=== PATIENT | male | born 1940 | race Caucasian/White ===

== ENCOUNTER → 2017-11-04 | Outpatient (CLI) | payer OTHER ==
[~2017-11-04] MED LIST: CALCTAB19 PO; DILT90TA PO; KCL10C PO; LISI-357 PO; LISI-519 PO; MAGN500T2 PO; METF850 PO; METF850T PO; PIOG15 PO; PIOG15TA5 PO; RIVA20 PO; ROSU20 PO; ROSU40 PO; SPIR25TA PO; VITA2000 PO; VITA250C3 CHEW; VITA500T35 PO; XARE20TA PO; ZITHTAB PO
== END ==
LOC: HRSP 08:55
PROVIDERS: ATTEND Internal Medicine
DX: J45.909 Unspecified asthma, uncomplicated (principal)
CPT/HCPCS: 94060; 94620; 94726; 94729; 95012

== ENCOUNTER 2017-11-08 14:38 | Emergency (ER) | payer OTHER ==
[~2017-11-08] VITALS: Ht 165.1 cm; Wt 81.0 kg
[~2017-11-08 14:38] MED LIST changes: -CALCTAB19 PO; -LISI-519 PO; -MAGN500T2 PO; -METF850T PO; -PIOG15TA5 PO; -ROSU20 PO; -VITA2000 PO; -VITA250C3 CHEW; -VITA500T35 PO; -XARE20TA PO; -ZITHTAB PO
[2017-11-08 14:48] VITALS: BP 115/55; PULSE 61; RESP 16; TEMP 97.5; O2SAT 98
[2017-11-08 16:14] VITALS: BP 116/61; PULSE 68; RESP 20; O2SAT 95
[2017-11-08] MEDS ORDERED: LISI-519 PO (16:20)
[2017-11-08] MEDS ORDERED: XARE20TA PO (16:20)
[2017-11-08] MEDS ORDERED: SPIR25TA PO (16:20)
[2017-11-08] MEDS ORDERED: CALCTAB19 PO (16:20)
[2017-11-08] MEDS ORDERED: VITA250C3 CHEW (16:20)
[2017-11-08] MEDS ORDERED: ROSU20 PO (16:20)
[2017-11-08] MEDS ORDERED: VITA2000 PO (16:20)
[2017-11-08] MEDS ORDERED: DILT90TA PO (16:20)
[2017-11-08] MEDS ORDERED: VITA500T35 PO (16:20)
[2017-11-08] MEDS ORDERED: PIOG15TA5 PO (16:20)
[2017-11-08] MEDS ORDERED: MAGN500T2 PO (16:20)
[2017-11-08] MEDS ORDERED: METF850T PO (16:20)
[2017-11-08] MEDS ORDERED: SODIUM CHLORIDE 0.9% FLUSH 10 ML FLUSH IVF PRN (16:30)
--- NOTE | 2017-11-08 16:41 | PD ---
HPI Chief Complaint: Dizziness Time Seen by Provider: 16:29 Travel History International Travel<30 days: No Contact w/Intl Traveler<30days: No Traveled to known affect area: No History of Present Illness HPI 76-year-old male patient with history of diabetes, A. fib, TIA, CHF, presents to the ER today because he states that over last few days he has been having dizziness, it is intermittently worse, and has been coughing and feeling generally weak. He coughs of white phlegm. He denies any fevers, vomiting, chest pains, or other symptoms. Modifying Factors: None Associated Signs & Symptoms: Cough, general weakness, dizziness Risk Factors: Elderly, multiple medical issues, CHF PFSH Past Medical History Hx Anticoagulant Therapy: Yes Arthritis: Yes (back) Asthma: No Atrial Fibrillation: Yes Autoimmune Disease: No Heart Rhythm Problems: Yes Cancer: No Cardiovascular Problems: Yes (htn on meds, a-fib) High Cholesterol: Yes Chemotherapy: No Chest Pain: No Congestive Heart Failure: Yes COPD: No Cerebrovascular Accident: Yes (tia) Diabetes: Yes (type 2) Patient Takes Glucophage: Yes Diminished Hearing: Yes Endocrine: Yes Gastrointestinal Disorders: No GERD: No Genitourinary: No Hiatal Hernia: No Hypertension: Yes Immune Disorder: No Implanted Vascular Access Dvce: No Kidney Stones: No Musculoskeletal: Yes Neurologic: Yes Psychiatric: No Reproductive: No Respiratory: No Immunizations Current: No Migraines: No Radiation Therapy: No Renal Failure: No Seizures: No Shingles: Yes Sickle Cell Disease: No Sleep Apnea: No Thyroid Disease: No Ulcer: No Past Surgical History Abdominal Surgery: No AICD: No Arteriovenous Shunt: No Cardiac Surgery: No Ear Surgery: No Endocrine Surgery: No Eye Surgery: No Genitourinary Surgery: No Gynecologic Surgery: No Insulin Pump: No Joint Replacement: Yes (LEFT KNEE PARTIAL REPLACEMENT) Oral Surgery: No Pacemaker: No Thoracic Surgery: No Tonsillectomy: Yes Other Surgery: Yes (RIGHT HAND S/P INFECTION: 2013) Social History Alcohol Use: Yes (OCCASIONAL) Tobacco Use: No Substance Use: No Allergies-Medications (Allergen,Severity, Reaction): Coded Allergies: No Known Allergies (Verified Adverse Reaction, Unknown, 11/08/17) Reported Meds & Prescriptions Reported Meds & Active Scripts Active Reported Calcium 600+D 200 (Calcium Carbonate-Vitamin D) 600-200 Mg-Unit Tab 1 Tab PO DAILY Magnesium Oxide 500 Mg Tab 500 Mg PO DAILY Vitamin C (Ascorbic Acid) 250 Mg Chew 1,000 Mg CHEW DAILY Vitamin B12 (Cyanocobalamin) 500 Mcg Tab 1,000 Mcg PO DAILY Vitamin D3 (Cholecalciferol) 2,000 Unit Cap 2,500 Units PO DAILY Metformin (Metformin HCl) 850 Mg Tab 850 Mg PO TIDPC Diltiazem (Diltiazem HCl) 90 Mg Tab 90 Mg PO QID Pioglitazone (Pioglitazone HCl) 15 Mg Tab 15 Mg PO DAILY Crestor (Rosuvastatin Calcium) 20 Mg Tab 20 Mg PO DAILY Spironolactone 25 Mg Tab 12.5 Mg PO DAILY Lisinopril 5 Mg Tab 5 Mg PO BID Xarelto (Rivaroxaban) 20 Mg Tab 20 Mg PO DAILY Review of Systems Except as stated in HPI: all other systems reviewed are Neg Physical Exam Narrative GENERAL: Well-developed elderly white male patient currently in mild distress at awake and oriented 3. SKIN: Focused skin assessment warm/dry. HEAD: Atraumatic. Normocephalic. EYES: Pupils equal and round. No scleral icterus. No injection or drainage. ENT: No nasal bleeding or discharge. Mucous membranes pink and moist. NECK: Trachea midline. No JVD. CARDIOVASCULAR: Slow and irregularly irregular. RESPIRATORY: No accessory muscle use. Clear to auscultation. Breath sounds equal bilaterally. GASTROINTESTINAL: Abdomen soft, non-tender, nondistended. Hepatic and splenic margins not palpable. MUSCULOSKELETAL: No obvious deformities. No clubbing. No cyanosis. No edema. NEUROLOGICAL: Awake and alert. No obvious cranial nerve deficits. Motor grossly within normal limits. Normal speech. PSYCHIATRIC: Appropriate mood and affect; insight and judgment normal. Data Data Last Documented VS Vital Signs Date Time Temp Pulse Resp B/P (MAP) Pulse Ox O2 Delivery O2 Flow Rate FiO2 11/08/17 17:13 58 20 136/61 (86) 100 11/08/17 14:48 97.5 Orders Orders Electrocardiogram (11/08/17 16:29) Complete Blood Count With Diff (11/08/17 16:29) Comprehensive Metabolic Panel (11/08/17 16:29) Magnesium (Mg) (11/08/17 16:29) Ckmb (Isoenzyme) Profile (11/08/17 16:29) Troponin I (11/08/17 16:29) Act Partial Throm Time (Ptt) (11/08/17 16:29) Prothrombin Time / Inr (Pt) (11/08/17 16:29) Urinalysis - C+S If Indicated (11/08/17 16:29) Chest, Single Ap (11/08/17 16:29) Ct Brain W/O Iv Contrast(Rout) (11/08/17 16:29) Ecg Monitoring (11/08/17 16:29) Iv Access Insert/Monitor (11/08/17 16:29) Oximetry (11/08/17 16:29) Sodium Chloride 0.9% Flush (Ns Flush) (11/08/17 16:30) B-Type Natriuretic Peptide (11/08/17 16:29) Ed Discharge Order (11/08/17 18:08) Labs Laboratory Tests Test 11/08/17 16:45 11/08/17 17:35 White Blood Count 7.6 TH/MM3 Red Blood Count 3.75 MIL/MM3 Hemoglobin 11.1 GM/DL Hematocrit 32.1 % Mean Corpuscular Volume 85.7 FL Mean Corpuscular Hemoglobin 29.5 PG Mean Corpuscular Hemoglobin Concent 34.5 % Red Cell Distribution Width 13.1 % Platelet Count 250 TH/MM3 Mean Platelet Volume 7.9 FL Neutrophils (%) (Auto) 63.0 % Lymphocytes (%) (Auto) 21.3 % Monocytes (%) (Auto) 9.3 % Eosinophils (%) (Auto) 3.8 % Basophils (%) (Auto) 2.6 % Neutrophils # (Auto) 4.8 TH/MM3 Lymphocytes # (Auto) 1.6 TH/MM3 Monocytes # (Auto) 0.7 TH/MM3 Eosinophils # (Auto) 0.3 TH/MM3 Basophils # (Auto) 0.2 TH/MM3 CBC Comment DIFF FINAL Differential Comment Prothrombin Time 13.1 SEC Prothromb Time International Ratio 1.3 RATIO Activated Partial Thromboplast Time 30.7 SEC Blood Urea Nitrogen 20 MG/DL Creatinine 0.82 MG/DL Random Glucose 109 MG/DL Total Protein 6.9 GM/DL Albumin 2.9 GM/DL Calcium Level 8.7 MG/DL Magnesium Level 1.5 MG/DL Alkaline Phosphatase 76 U/L Aspartate Amino Transf (AST/SGOT) 94 U/L Alanine Aminotransferase (ALT/SGPT) 108 U/L Total Bilirubin 0.4 MG/DL Sodium Level 136 MEQ/L Potassium Level 4.9 MEQ/L Chloride Level 102 MEQ/L Carbon Dioxide Level 26.1 MEQ/L Anion Gap 8 MEQ/L Estimat Glomerular Filtration Rate 91 ML/MIN Total Creatine Kinase 64 U/L Troponin I LESS THAN 0.02 NG/ML B-Type Natriuretic Peptide 148 PG/ML Urine Color YELLOW Urine Turbidity CLEAR Urine pH 7.0 Urine Specific [place] 1.015 Urine Protein NEG mg/dL Urine Glucose (UA) NEG mg/dL Urine Ketones NEG mg/dL Urine Occult Blood NEG Urine Nitrite NEG Urine Bilirubin NEG Urine Leukocyte Esterase NEG Urine WBC 0-2 /hpf Urine Squamous Epithelial Cells 0-5 /hpf Microscopic Urinalysis Comment CULT NOT INDICATED MDM Medical Decision Making Medical Screen Exam Complete: Yes Emergency Medical Condition: Yes Medical Record Reviewed: Yes Interpretation(s) EKG shows A. fib with slow ventricular response at a rate 57 bpm. Laboratory Tests Test 11/08/17 16:45 11/08/17 17:35 Red Blood Count 3.75 MIL/MM3 (4.50-5.90) Hemoglobin 11.1 GM/DL (13.0-17.0) Hematocrit 32.1 % (39.0-51.0) Monocytes (%) (Auto) 9.3 % (0.0-8.0) Basophils (%) (Auto) 2.6 % (0.0-2.0) Prothrombin Time 13.1 SEC (9.8-11.6) Activated Partial Thromboplast Time 30.7 SEC (24.3-30.1) Blood Urea Nitrogen 20 MG/DL (7-18) Random Glucose 109 MG/DL (74-106) Albumin 2.9 GM/DL (3.4-5.0) Aspartate Amino Transf (AST/SGOT) 94 U/L (15-37) Alanine Aminotransferase (ALT/SGPT) 108 U/L (12-78) Troponin I LESS THAN 0.02 NG/ML B-Type Natriuretic Peptide 148 PG/ML (0-100) Last [address] 11/08/17 [id number] Signed Impressions: Service Date/Time: Wednesday, November 08, 2017 16:53 - CONCLUSION: 1. Stable chronic changes with minimal cortical and central atrophy. Nothing acute. 2. Stable right-sided mastoiditis. Minimal chronic sinusitis in the sphenoids bilaterally. Leonardo Mak MD Chest X-Ray 11/08/17 [id number] Signed Impressions: Service Date/Time: Wednesday, November 08, 2017 17:07 - CONCLUSION: 1. No acute cardiopulmonary disease. Hua Dasilva MD Differential Diagnosis Dizziness, coughing, general weakness: Dehydration versus sepsis versus metabolic issues versus dysrhythmias versus pneumonia versus CHF exacerbation Narrative Course Patient does have A. fib with slow ventricular response. His rates are running in the 50s. He was given a small dose of IV fluids in the ER. He remains asymptomatic otherwise and was ambulatory in the ER without issues. He has no focal neurological deficits. Chest x-ray did not show any signs of pneumonia. He has no signs of sepsis. BNP is normal. At this point, I suspect may have some underlying bronchitis versus viral syndrome and my plan would be to have him drink plenty of fluids, we will release him with close follow-up to primary care doctor. Return for any worsening in symptoms as needed. The plan has been discussed with him and he states understanding. Diagnosis Primary Impression: Dizziness Additional Impression: Atrial fibrillation Med/Other Pt SpecificInfo: Prescription(s) given Scripts Azithromycin (Zithromax Z-Singh) 250 Mg Dspk 250 MG PO DIRECTED for Infection, #1 DSPK 0 Refills 500 MG (2 tabs) day 1, then 1 tab days 2-5. Prov: Chata Carnes MD 11/08/17 Disposition: 01 DISCHARGE HOME Condition: Stable Chata Carnes MD Nov 08, 2017 16:41
[2017-11-08 16:47] VITALS: O2SAT 98
[2017-11-08 16:51] LABS: AUTOMATED NEUTROPHIL # 4.8 TH/MM3 (1.8-7.7); BASOPHIL # 0.2 TH/MM3 (0-0.2); BASOPHIL % 2.6 % (0.0-2.0); EOSINOPHIL # 0.3 TH/MM3 (0-0.4); EOSINOPHIL % 3.8 % (0.0-4.0); HEMATOCRIT 32.1 % (39.0-51.0); HEMOGLOBIN 11.1 GM/DL (13.0-17.0); LYMPH % 21.3 % (9.0-44.0); LYMPHOCYTE # 1.6 TH/MM3 (1.0-4.8); MEAN CELL VOLUME 85.7 FL (80.0-100.0); MEAN CORPUSCULAR HEMOGLOBIN 29.5 PG (27.0-34.0); MEAN CORPUSCULAR HGB CONC 34.5 % (32.0-36.0); MEAN PLATELET VOLUME 7.9 FL (7.0-11.0); MONO % 9.3 % (0.0-8.0); MONOCYTE # 0.7 TH/MM3 (0-0.9); PLATELET COUNT 250 TH/MM3 (150-450); RED BLOOD COUNT 3.75 MIL/MM3 (4.50-5.90); RED CELL DISTRIBUTION WIDTH 13.1 % (11.6-17.2); WHITE BLOOD COUNT 7.6 TH/MM3 (4.0-11.0)
[2017-11-08 17:09] LABS: CHLORIDE 102 MEQ/L (98-107); SODIUM (NA) 136 MEQ/L (136-145)
[2017-11-08 17:13] VITALS: BP 136/61; PULSE 58; RESP 20; O2SAT 100
[2017-11-08 17:13] LABS: ALBUMIN 2.9 GM/DL (3.4-5.0); BICARBONATE 26.1 MEQ/L (21.0-32.0); BLOOD UREA NITROGEN 20 MG/DL (7-18); CALCIUM 8.7 MG/DL (8.5-10.1); GLUCOSE,RANDOM 109 MG/DL (74-106); MAGNESIUM 1.5 MG/DL (1.5-2.5)
--- NOTE | 2017-11-08 17:13 | RADRPT ---
EXAM DATE/TIME: 11/08/2017 16:53 [facility] COMPARISON: CT BRAIN W/O CONTRAST, September 03, 2016, 14:21. INDICATIONS : Dizziness. RADIATION DOSE: 61.31 CTDIvol (mGy) MEDICAL HISTORY : Cerebrovascular disease. Hypertension. Anticoagulant therapy. Diabetes. SURGICAL HISTORY : None. ENCOUNTER: Initial ACUITY: 3 days PAIN SCALE: 0/10 LOCATION: cranial TECHNIQUE: Multiple contiguous axial images were obtained of the head. Using automated exposure control and adj ustment of the mA and/or kV according to patient size, radiation dose was kept as low as reasonably a chievable to obtain optimal diagnostic quality images. DICOM format image data is available electro nically for review and comparison. FINDINGS: CEREBRUM: And mild, stable central atrophy and cortical. No evidence of midline shift, mass lesion, hemorrhage or acute infarction. No extra-axial fluid collections are seen. POSTERIOR FOSSA: The cerebellum and brainstem are intact. The 4th ventricle is midline. The cerebellopontine angle i s unremarkable. EXTRACRANIAL: The visualized portion of the orbits is intact. Fluid in the right mastoid air cells. Mild mucoperios teal thickening in the sphenoid sinuses. SKULL: The calvaria is intact. No evidence of skull fracture. CONCLUSION: 1. Stable chronic changes with minimal cortical and central atrophy. Nothing acute. 2. Stable right-sided mastoiditis. Minimal chronic sinusitis in the sphenoids bilaterally. Leonardo Mak MD on November 08, 2017 at 17:09 Board Certified Radiologist. This report was verified electronically.
[2017-11-08 17:14] LABS: INTERNATIONAL NORMALIZED RATIO 1.3 RATIO; PROTHROMBIN TIME - PATIENT 13.1 SEC (9.8-11.6)
[2017-11-08 17:16] LABS: ALT (GPT) 108 U/L (12-78); AST (GOT) 94 U/L (15-37); CREATININE 0.82 MG/DL (0.60-1.30); GLOMERULAR FILTRATION RATE 91 ML/MIN (>89)
[2017-11-08 17:18] LABS: TOTAL BILIRUBIN ADULT 0.4 MG/DL (0.2-1.0); TOTAL PROTEIN 6.9 GM/DL (6.4-8.2)
[2017-11-08 17:19] LABS: ALKALINE PHOSPHATASE 76 U/L (45-117)
[2017-11-08 17:21] LABS: TROPONIN I LESS THAN 0.02 NG/ML (0.02-0.05)
--- NOTE | 2017-11-08 17:24 | RADRPT ---
EXAM DATE/TIME: 11/08/2017 17:07 [facility] COMPARISON: CHEST SINGLE AP, July 29, 2016, 9:44. INDICATIONS : Dizziness and cough. MEDICAL HISTORY : Cerebrovascular disease. Hypertension. Anticoagulant therapy. Diabetes SURGICAL HISTORY : None. ENCOUNTER: Initial ACUITY: 4 - 6 months PAIN SCORE: 4/10 LOCATION: Bilateral upper chest FINDINGS: A single view of the chest demonstrates the lungs to be symmetrically aerated without evidence of mas s, infiltrate or effusion. The cardiomediastinal contours are unremarkable. Remainder of the exam is unchanged. CONCLUSION: 1. No acute cardiopulmonary disease. Hua Dasilva MD on November 08, 2017 at 17:22 Board Certified Radiologist. This report was verified electronically.
[2017-11-08 17:52] LABS: BILIRUBIN, URINE NEG (NEG); BLOOD, URINE NEG (NEG); GLUCOSE,URINE NEG (NEG); KETONE, URINE NEG (NEG); NITRITE,URINE NEG (NEG); URINE LEUKOCYTE ESTERASE NEG (NEG)
[2017-11-08 17:58] LABS: SQUAMOUS EPITHELIAL CELL URINE 0-5 /hpf (0-5); URINE COLOR YELLOW (YELLW/STRAW); WBC, URINE 0-2 /hpf (0-5)
[2017-11-08] MEDS ORDERED: ZITHTAB PO (18:14)
--- NOTE | 2017-11-09 15:03 | EKG ---
Date Performed: 11/08/2017 Time Performed: 16:45:26 PTAGE: 76 years EKG: ATRIAL FIBRILLATION WITH SLOW VENTRICULAR RESPONSE ABNORMAL RHYTHM ECG PREVIOUS TRACING : 09/03/2016 13.48 DOCTOR: Deangelo Patel Interpretating Date/Time 11/09/2017 15:01:45
== END 2017-11-08 18:30 | disposition home or self-care (01) ==
LOC: PHED 14:38
DX: R42 Dizziness and giddiness (principal); I48.91 Unspecified atrial fibrillation; H70.91 Unspecified mastoiditis, right ear; J32.3 Chronic sphenoidal sinusitis; I11.0 Hypertensive heart disease with heart failure; I50.9 Heart failure, unspecified; E11.9 Type 2 diabetes mellitus without complications; E78.00 Pure hypercholesterolemia, unspecified; R94.31 Abnormal electrocardiogram [ECG] [EKG]
CPT/HCPCS: 70450; 71010; 80053; 81001; 82550; 83735; 83880; 84484; 85025; 85610; 85730; 93005; 99285

== ENCOUNTER 2018-01-16 09:10 | Emergency (ER) | payer OTHER ==
[~2018-01-16] VITALS: Ht 165.1 cm; Wt 83.0 kg
[~2018-01-16 09:10] MED LIST changes: +CALCTAB19 PO; -KCL10C PO; -LISI-357 PO; +LISI-519 PO; +MAGN500T2 PO; -METF850 PO; +METF850T PO; -PIOG15 PO; +PIOG15TA5 PO; -RIVA20 PO; +ROSU20 PO; -ROSU40 PO; +VITA2000 PO; +VITA250C3 CHEW; +VITA500T35 PO; +XARE20TA PO; +ZITHTAB PO
[2018-01-16 09:14] VITALS: BP 143/57; PULSE 57; RESP 18; TEMP 97.6; O2SAT 99
--- NOTE | 2018-01-16 10:20 | PD ---
HPI Chief Complaint: Injury Time Seen by Provider: 10:08 Travel History International Travel<30 days: No Contact w/Intl Traveler<30days: No Traveled to known affect area: No History of Present Illness HPI This patient complains of low back pain. He had a fall 10 days ago. The chair rolled out from underneath him and he fell onto his buttocks. Has no pain in the pelvis her tailbone area but complains of low back pain. No neurologic complaint. He has a walker at home but doesn't use it. He has been using a cane. Severity is moderate. PFSH Past Medical History Hx Anticoagulant Therapy: Yes (XARELTO) Arthritis: Yes (back) Asthma: No Atrial Fibrillation: Yes Autoimmune Disease: No Heart Rhythm Problems: Yes Cancer: No Cardiovascular Problems: Yes (htn on meds, a-fib) High Cholesterol: Yes Chemotherapy: No Chest Pain: No Congestive Heart Failure: Yes COPD: No Cerebrovascular Accident: Yes (tia) Diabetes: Yes (type 2) Patient Takes Glucophage: Yes Diminished Hearing: Yes Endocrine: Yes Gastrointestinal Disorders: No GERD: No Genitourinary: No Hiatal Hernia: No Hypertension: Yes Immune Disorder: No Implanted Vascular Access Dvce: No Kidney Stones: No Musculoskeletal: Yes Neurologic: Yes Psychiatric: No Reproductive: No Respiratory: No Immunizations Current: No Migraines: No Radiation Therapy: No Renal Failure: No Seizures: No Shingles: Yes Sickle Cell Disease: No Sleep Apnea: No Thyroid Disease: No Ulcer: No Influenza Vaccination: Yes ?: Not Past Surgical History Abdominal Surgery: No AICD: No Arteriovenous Shunt: No Cardiac Surgery: No Ear Surgery: No Endocrine Surgery: No Eye Surgery: No Genitourinary Surgery: No Gynecologic Surgery: No Insulin Pump: No Joint Replacement: Yes (LEFT KNEE PARTIAL REPLACEMENT) Oral Surgery: No Pacemaker: No Thoracic Surgery: No Tonsillectomy: Yes Other Surgery: Yes (RIGHT HAND S/P INFECTION: 2013) Social History Alcohol Use: Yes (OCCASIONAL) Tobacco Use: No Substance Use: No Allergies-Medications (Allergen,Severity, Reaction): Coded Allergies: No Known Allergies (Verified Adverse Reaction, Unknown, 01/16/18) Reported Meds & Prescriptions Reported Meds & Active Scripts Active Reported Calcium 600+D 200 (Calcium Carbonate-Vitamin D) 600-200 Mg-Unit Tab 1 Tab PO DAILY Magnesium Oxide 500 Mg Tab 500 Mg PO DAILY Vitamin C (Ascorbic Acid) 250 Mg Chew 1,000 Mg CHEW DAILY Vitamin B12 (Cyanocobalamin) 500 Mcg Tab 1,000 Mcg PO DAILY Vitamin D3 (Cholecalciferol) 2,000 Unit Cap 2,500 Units PO DAILY Metformin (Metformin HCl) 850 Mg Tab 850 Mg PO TIDPC Diltiazem (Diltiazem HCl) 90 Mg Tab 90 Mg PO QID Pioglitazone (Pioglitazone HCl) 15 Mg Tab 15 Mg PO DAILY Crestor (Rosuvastatin Calcium) 20 Mg Tab 20 Mg PO DAILY Spironolactone 25 Mg Tab 12.5 Mg PO DAILY Lisinopril 5 Mg Tab 5 Mg PO BID Xarelto (Rivaroxaban) 20 Mg Tab 20 Mg PO DAILY Review of Systems General / Constitutional: No: Fever HENT: No: Headaches Cardiovascular: No: Chest Pain or Discomfort Respiratory: No: Cough Gastrointestinal: No: Nausea Physical Exam Narrative GASTROINTESTINAL: Abdomen soft, non-tender, nondistended. Positive bowel sounds. No hepato-splenomegaly, or palpable masses. No guarding. SKIN: Focused skin assessment reveals no rash or ulcers. Skin is warm and dry. Palpation shows no induration or nodules. NEUROLOGICAL: Awake and alert. Pupils are equal round and reactive. Motor and sensory grossly within normal limits. Five out of 5 muscle strength in all muscle groups. Normal speech. Back: Does have some midline tenderness at the L4 area but no erythema or bruising. Data Data Last Documented VS Vital Signs Date Time Temp Pulse Resp B/P (MAP) Pulse Ox O2 Delivery O2 Flow Rate FiO2 01/16/18 09:14 97.6 57 18 143/57 (85) 99 Orders Orders Spine, Lumbar - Ltd (Ap & Lat) (01/16/18 ) MDM Medical Decision Making Medical Screen Exam Complete: Yes Emergency Medical Condition: Yes Medical Record Reviewed: Yes Differential Diagnosis Compression fracture, contusion, strain Narrative Course I have reviewed the patient's electronic medical record. Reviewed his lumbar x-rays which show degenerative change but no different from prior. No fractures noted I wrote him some Tylenol 3 with codeine use as needed for pain. 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 The patient was warned about potential sedation for the medications they will receive on prescription. Use walker Med/Other Pt SpecificInfo: Prescription(s) given Scripts Acetaminophen-Codeine (Tylenol-Codeine #3) 300-30 mg Tab 1 TAB PO Q4H Y for PAIN, #15 TAB 0 Refills Prov: Yoshi Fishman MD 01/16/18 Disposition: 01 DISCHARGE HOME Condition: Stable Yoshi Fishman MD Jan 16, 2018 10:20
--- NOTE | 2018-01-16 11:10 | RADRPT ---
EXAM DATE/TIME: 01/16/2018 11:05 [facility] COMPARISON: SPINE LUMBAR LTD (AP & LAT), June 06, 2015, 10:14. INDICATIONS : Low back pain. MEDICAL HISTORY : None. SURGICAL HISTORY : None. ENCOUNTER: Initial ACUITY: 1 week PAIN SCORE: 9/10 LOCATION: low back FINDINGS: 3 views of the lumbar spine show a subtle scoliotic curvature with concavity towards the patient's ri ght centered at L2-L3. Rudimentary ribs are seen at L1. There is anterior osteophyte production seen involving the upper lumbar levels. Disc space heights and vertebral body heights are preserved throug hout. No fracture or dislocation. Calcified plaque throughout the abdominal aorta. CONCLUSION: Degenerative changes of the lumbar spine are radiographically similar to the prior study. No acute ab normality. Sanjay Dozier Jr., MD on January 16, 2018 at 11:07 Board Certified Radiologist. This report was verified electronically.
[2018-01-16] MEDS ORDERED: TYLETAB34 PO (11:33)
== END 2018-01-16 11:49 | disposition home or self-care (01) ==
LOC: PHEFT 09:10
DX: M54.5 Low back pain (principal); M47.816 Spondylosis without myelopathy or radiculopathy, lumbar region; I48.91 Unspecified atrial fibrillation; M46.90 Unspecified inflammatory spondylopathy, site unspecified; I10 Essential (primary) hypertension; E78.00 Pure hypercholesterolemia, unspecified; I50.9 Heart failure, unspecified; E11.9 Type 2 diabetes mellitus without complications; W07.XXXA Fall from chair, initial encounter; Z86.73 Personal history of transient ischemic attack (TIA), and cerebral infarction without residual deficits; Z79.01 Long term (current) use of anticoagulants
CPT/HCPCS: 72100; 99283